=== PATIENT | male | born 1995 | race Two or more races ===

== ENCOUNTER 2017-07-16 18:20 | Emergency (ER) | payer OTHER ==
[2017-07-16] MEDS ORDERED: Diphtheria,Pertussis(Acell),Tetanus Vaccine 0.5 ML SDV IM ONE (18:26)
[2017-07-16] MEDS: Lidocaine 1% 20 ML MDV INJECT ONE ×2 (19:15→20:07)
--- NOTE | 2017-07-16 19:27 | EDM.PDOC ---
ED HPI GENERAL MEDICAL PROBLEM - General Chief Complaint: Upper Extremity Injury/Pain Stated Complaint: RIGHT INDEX FINGER INJURY Time Seen by Provider: 07/16/17 18:25 Source of Information: Reports: Patient History Limitations: Reports: No Limitations - History of Present Illness INITIAL COMMENTS - FREE TEXT/NARRATIVE: Patient is a 22-year-old gentleman who presents to the emergency department this afternoon with a complaint of right index finger trauma secondary to accidental strike with hammer. Patient states just happened prior to presentation and denies any other injury. Patient states she is unsure of tetanus status. Patient will be given tetanus in the emergency department today. Onset: Today Location: Reports: Upper Extremity, Right Quality: Reports: Ache Severity: Mild Improves with: Reports: None Worsens with: Reports: Movement Context: Reports: Trauma Associated Symptoms: Reports: No Other Symptoms Right Hand Pain Score (Numeric/FACES): 4 - Related Data Allergies Allergy/AdvReac Type Severity Reaction Status Date / Time Penicillins Allergy Cannot Verified 07/16/17 18:26 Remember Home Meds: Home Meds Cephalexin [Keflex] 500 mg PO Q8H #30 cap 07/16/17 [Rx] Social & Family History - Tobacco Use Smoking Status *Q: Never Smoker Second Hand Smoke Exposure: No - Caffeine Use Caffeine Use: Reports: Coffee, Energy Drinks, Soda, Tea - Alcohol Use Days Per Week of Alcohol Use: 3 Number of Drinks Per Day: 5 Total Drinks Per Week: 15 - Recreational Drug Use Recreational Drug Use: No Review of Systems - Review of Systems Review Of Systems: ROS reveals no pertinent complaints other than HPI. Constitutional: Reports: No Symptoms Eyes: Reports: No Symptoms Ears: Reports: No Symptoms Nose: Reports: No Symptoms Mouth/Throat: Reports: No Symptoms Respiratory: Reports: No Symptoms Cardiovascular: Reports: No Symptoms GI/Abdominal: Reports: No Symptoms Genitourinary: Reports: No Symptoms Musculoskeletal: Reports: Hand Pain (Right index finger distal aspect laceration and fingernail avulsion) Skin: Reports: Wound (As above) Neurological: Reports: No Symptoms Psychiatric: Reports: No Symptoms ED EXAM, GENERAL - Physical Exam Exam: See Below Exam Limited By: No Limitations General Appearance: Alert, WD/WN, No Apparent Distress Throat/Mouth: Normal Inspection, Normal Oropharynx, No Airway Compromise Head: Atraumatic, Normocephalic Neck: Normal Inspection Respiratory/Chest: No Respiratory Distress Extremities: Other (Laceration and partial nail avulsion to right second digit) Neurological: Alert, Oriented, Normal Cognition Psychiatric: Normal Affect, Normal Mood Skin Exam: Warm, Dry, Normal Color, No Rash ED TRAUMA EXTREMITY PROCEDURES - Laceration/Wound Repair Right Distal Finger Lac/Wound Length In cm: 1.0 Appearance: Superficial Distal NVT: Neuro & Vascular Intact, No Tendon Injury Anesthetic Type: Digital Local Anesthesia - Lidocaine (Xylocaine): 1% Plain Local Anesthetic Volume: 3cc Skin Prep: Providone-Iodine (Betadine) Closed With: Sutures Suture Size: 4-0 # of Sutures: 4 Suture Type: Prolene, Interrupted Tetanus Status Addressed: Yes Complications: No Progress/Comments: Partial avulsion of nail, repair suture attachment for good approximation. Course - Vital Signs Last Recorded V/S: Last Vital Signs Temp 100.0 F 07/16/17 18:26 Pulse 93 07/16/17 18:26 Resp 20 07/16/17 18:26 BP 167/87 H 07/16/17 18:26 Pulse Ox 98 07/16/17 18:26 - Orders/Labs/Meds Orders: Active Orders 24 hr Category Date Time Status Vaccines to be Administered [RC] PER UNIT ROUTINE Care 07/16/17 18:26 Ordered Fingers Second Digit Rt F6 [CR] Stat Exams 07/16/17 18:26 Ordered Meds: Medications Discontinued Medications Generic Name Dose Route Start Last Admin Trade Name Freq PRN Reason Stop Dose Admin Diphtheria/Tetanus/Acell Pertussis 0.5 ml 07/16/17 18:26 Adacel IM 07/16/17 18:27 .ONCE ONE - Radiology Interpretation Free Text/Narrative:: Finger x-ray shows distal tuft fracture. Second digit right hand - Re-Assessments/Exams Free Text/Narrative Re-Assessment/Exam: 07/16/17 19:52 Patient afebrile, nontoxic appearing, vital signs stable, tolerated procedure well. Patient given tetanus, 1 g IM Rocephin, and prescription for cephalexin. He will follow-up with local clinic and then orthopedic surgeon where he lives in [place]. 07/16/17 19:58 07/16/17 20:00 Departure - Departure Time of Disposition: 19:53 Disposition: Home, Self-Care 01 Condition: Good Clinical Impression: Open fracture of finger, distal phalanx Qualifiers: Encounter type: initial encounter Finger: index finger Fracture alignment: nondisplaced Laterality: right Qualified Code(s): S62.660B - Nondisplaced fracture of distal phalanx of right index finger, initial encounter for open fracture - Discharge Information Instructions: Finger Fracture, [id number], Laceration Care, Adult, Easy-to- Read, Stitches, Polina, or Adhesive Wound Closure, [id number] Referrals: PCP,Not In Area [Primary Care Provider] - Maryjane Burch MD [Physician] - Forms: ED Department Discharge Additional Instructions: Follow-up with Dr. Scott in 2 days for recheck and orthopedic referral. - My Orders Last 24 Hours: My Active Orders 07/16/17 18:26 Vaccines to be Administered [RC] PER UNIT ROUTINE Fingers Second Digit Rt F6 [CR] Stat - Assessment/Plan Last 24 Hours: My Active Orders 07/16/17 18:26 Vaccines to be Administered [RC] PER UNIT ROUTINE Fingers Second Digit Rt F6 [CR] Stat Assessment:: Fracture laceration to right index finger Plan: Follow-up with orthopedic surgeon in 2-3 days. Suture removal in 10 days.
[2017-07-16] MEDS ORDERED: Acetaminophen/HYDROcodone 325-5 MG Tab PO ONE (19:48)
[2017-07-16] MEDS ORDERED: cefTRIAXone 1 GM Vial IM ONE (19:48)
[2017-07-16] MEDS ORDERED: Bacitracin/Neomycin/Polymyxin B Oint 0.9 GM U/D Packet TOP ONE (20:20)
== END 2017-07-16 20:35 | disposition home or self-care (01) ==
LOC: KA.ED 18:20
DX: S62.660B Nondisplaced fracture of distal phalanx of right index finger, initial encounter for open fracture (principal); W22.8XXA Striking against or struck by other objects, initial encounter; Z88.0 Allergy status to penicillin; Z23 Encounter for immunization
CPT/HCPCS: 11760; 73140-F6; 90471; 90715; 96372; 99283; A9270-GY; J0696